=== PATIENT | female | born 1960 | race Caucasian/White ===

== ENCOUNTER 2025-07-15 06:09 | Day surgery (SDC) | payer MEDICAID, SELFPAY ==
--- NOTE | 2025-07-14 16:49 | W.ANESPRE ---
General Info Date of Service Date Performed: 07/15/25 Height: 5 ft 5 in Weight: 89.358 kg Body Mass Index (BMI): 32.8 Surgical Procedure: Operation Date: 07/15/25 07:40 Proposed Procedure Side Surgeon p Wrist ECTR Right Ari Houston MD Meds Allergies and Home Medications Allergies Allergy/AdvReac Type Severity Reaction Status Date / Time No Known Allergies Allergy Verified 07/15/25 06:37 Home Medication Medication Instructions Recorded ascorbic acid (vitamin C) 1,000 mg 1,000 mg PO DAILY 04/03/25 capsule atorvastatin 40 mg tablet (Lipitor) 40 mg PO DAILY 04/03/25 cholecalciferol (vitamin D3) 50 50 mcg PO DAILY 04/03/25 mcg (2,000 unit) capsule lisinopril 20 1 tab PO DAILY 04/03/25 mg-hydrochlorothiazide 25 mg tablet metformin 500 mg tablet 500 mg PO DAILY 04/03/25 semaglutide 2 mg/dose (8 mg/3 mL) 2 mg subcut QWEEK 04/03/25 subcutaneous pen injector (Ozempic) Current Visit Medications: Current Medications Generic Name Dose Route Start Last Admin Trade Name Freq PRN Reason Stop Dose Admin Ringer's Solution 1,000 mls @ 80 mls/hr 07/15/25 06:00 IV 07/15/25 23:59 INFUSION BOB Cefazolin Sodium/Dextrose 2 gm in 50 mls @ 100 mls/hr 07/15/25 06:00 Ancef Duplex IVPB 07/15/25 23:59 PREOP BOB IV Miscellaneous Supplies 1 each 07/15/25 06:00 Iv Access IV 07/15/25 23:59 DIRECTED BOB Sodium Chloride 0 ml 07/15/25 06:00 Normal Saline Flush 10 Ml Syr IV 07/15/25 23:59 PRN PRN Sodium Chloride 0 ml 07/15/25 06:00 Normal Saline 10 Ml Vial IJ 07/15/25 23:59 DIRECTED PRN Sterile Water 0 ml 07/15/25 06:00 Water,Injection,Sterile 10 Ml Vial IJ 07/15/25 23:59 DIRECTED PRN PFSH Active Problems Active Problems: Problem Status Onset Code Decreased sensation Acute R20.8 Carpal tunnel syndrome, right upper limb Acute G56.01 Obesity Chronic E66.9 Hypertension Chronic I10 Hyperlipidemia Acute E78.5 Former smoker Acute Z87.891 Type 2 diabetes mellitus Acute E11.9 Surgical History Surgical History History of carpal tunnel surgery of left wrist History of laparoscopic cholecystectomy History of tubal ligation History of endometrial ablation History of left oophorectomy Tobacco Smoking/Tobacco Use Status: Former Tobacco Use Passive smoking exposure: No Second hand exposure: No Alcohol Alcohol Intake: current Alcohol intake frequency: a few times a week Substance Use Substance use: Occasionally Substance use type: marijuana Vital Signs and Lab Results Lab Results Complete Metabolic Panel: Sodium, (120-150) 139 07/02/25, 15:17 Potassium, (3.5-5.1) 3.9 mmol/L 07/02/25, 15:17 Chloride 102 mmol/L 07/02/25, 15:17 Carbon Dioxide 30 mmol/L 07/02/25, 15:17 BUN, (7-18) 12 mg/dL 07/02/25, 15:17 Creatinine, (0.55-1.02) 0.61 mg/dL 07/02/25, 15:17 Est GFR (CKD-EPI 2020) 100 mL/min/ 07/02/25, 15:17 Calcium 9.6 mg/dL 07/02/25, 15:17 Glucose 86 mg/dL 07/02/25, 15:17 Hemoglobin A1c, (4.5-5.7) 5.5 % 07/02/25, 15:10 Anesthesia Assessment and Plan Anesthesia History Personal History: No History of Anesthesia Complications Family History: No Family History of Anesthesia Complications Exercise Tolerance Exercise Tolerance: Metabolic Equivalents>4 Pertinent Negatives Pertinent Negatives: No Symptoms of GERD, No Major Cardiovascular Symptoms or Complaints, No Major Pulmonary Symptoms or Complaints and No History of CVA/TIA Cardiac & Pulmonary Exam Cardiac Exam: Normal S1/S2 Heart Sounds Pulmonary Exam: Clear Bilateral Breath Sounds Implantable Cardiac Device Does patient have a Pacemaker or an ICD?: No Airway Exam Known Difficult Airway: No Mallampati Class: 2 Mouth Opening: Normal (> 3cm) Thyromental Distance: Greater than 3 cm Neck Range of Motion: Full ROM Neck Circumference: Normal Teeth Condition: Normal Dentition ASA Classification ASA Score: ASA 2 Emergency Case?: No NPO Status NPO Status: NPO Clears >2 hours, Solids >8 hours Anesthesia Plan Resuscitation Status: Full Code Anesthesia Technique: General Anesthesia Airway Planned: Natural Airway Monitors Used: Standard Monitors Preoperative Comments:: Patient reports years of intermittent numbness and tingling in the right radial digits which has been worsening for the past several months. She reports that the thumb, index, and middle fingers go numb when doing her makeup and causes her to drop things. She also gets [id number] in her palm at night which is very uncomfortable. She has previously tried night bracing which she reports was not helpful. Patient reports history of contralateral LEFT ECTR about 8-10 years ago in [place] with excellent results. She reports that she had nerve conduction studies prior to LEFT ECTR but has not had any on the right. History of HTN and diabetes, last A1c was 5.6 on 03/30/25.
[2025-07-15 06:32] VITALS: BP 125/63; PULSE 65; RESP 14; TEMP 36.2; O2SAT 97
[2025-07-15] MEDS: Lactated Ringers 1,000 ML 80 ML IV (06:49)
[2025-07-15 07:08] VITALS: BMI 32.8
--- NOTE | 2025-07-15 07:11 | W.PM.DSUDISC ---
Date of service: 07/15/25 Discharge Plan Disposition Patient Disposition: Home Condition: Good Discharge Details Reason For Visit: R ECTR Attending Provider: Ari Houston Primary Care Provider: Mela Page Home Meds and New Rx's Prescriptions: New acetaminophen 500 mg tablet 500 mg PO TID Qty: 90 0RF hydrocodone-acetaminophen 5-325 mg tablet 1 tab PO Q6H PRN (Reason: pain) Qty: 4 0RF ibuprofen 600 mg tablet 600 mg PO TID PRN (Reason: pain) Qty: 90 0RF Continued atorvastatin [Lipitor] 40 mg tablet 40 mg PO DAILY metformin 500 mg tablet 500 mg PO DAILY lisinopril-hydrochlorothiazide 20-25 mg tablet 1 tab PO DAILY cholecalciferol (vitamin D3) 50 mcg (2,000 unit) capsule 50 mcg PO DAILY Ozempic 2 mg/dose (8 mg/3 mL) pen injector 2 mg subcut QWEEK ascorbic acid (vitamin C) 1,000 mg capsule 1,000 mg PO DAILY Discharge Instructions Stand Alone Forms: Anesthesia Discharge Inst., Celso Almazan Tunnel Release, Ciro Young ([facility]U), Portal Information Referrals: Ari Houston MD [ [facility] STAFF PHYSICIAN, Orthopaedic Surgical] - 07/27/25 8:30 am Activity:: Activity as Tolerated Remove Dressings/Wound Care:: 48 hours Shower/Bathe:: 48 hours Diet:: As Tolerated Discharge Orders Discharge Orders: Discharge Order (Routine); Ordered 07/15/25 Ordered By: Ramon Lanier DS: Diagnosis Discharge Diagnosis (1) Carpal tunnel syndrome, right upper limb: Status: Acute
[2025-07-15] MEDS: ceFAZolin 2 GM/50 ML BAG IVPB (07:25)
[2025-07-15] MEDS: Lidocaine 1% Multi-Dose W/EPI 1/100,000 50 ML VIAL (07:33)
[2025-07-15 07:41] VITALS: BP 109/60; PULSE 68; RESP 12; TEMP 36.1; O2SAT 92
[2025-07-15 08:04] VITALS: BP 111/68; PULSE 62; RESP 16; TEMP 36.4; O2SAT 94
--- NOTE | 2025-07-15 08:04 | W.ANESPOSTOP ---
Postoperative Evaluation Date, Time and Location Date Performed: 07/15/25 Time Performed: 08:04 Patient Location: Day Surgery Unit Vital Signs Most Recent Imported Vital Signs: Most Recent Vital Signs Temp Pulse Resp BP Pulse Ox 36.1 C L 68 12 109/60 92 07/15/25 07:41 07/15/25 07:41 07/15/25 07:41 07/15/25 07:41 07/15/25 07:41 Pain Score Most Recent Pain Score: Most Recent Pain Score Pain Level 0 07/15/25 07:41 Assessment Mental Status: Awake (Alert & Oriented to Patient Baseline) Airway and Respiratory Function: Patent airway with normal (patient baseline) respiratory exam Cardiovascular Function: Hemodynamically Stable Hydration Status: Adequately Hydrated Nausea & Vomiting: No Nausea or Vomiting Pain: Pain is tolerable per patient Peripheral Nerve Block: Patient did not receive a nerve block
--- NOTE | 2025-07-15 09:18 | W.PM.OP ---
Operative Note Operative Note PRE-OP DIAGNOSIS: Right Carpal Tunnel Syndrome POST-OP DIAGNOSIS: same PROCEDURE: Right Endoscopic Carpal Tunnel Release SURGEON: Ari Houston ANESTHESIA TYPE: General:No Airway Refer to Anesthesia Record ESTIMATED BLOOD LOSS: 0 PATHOLOGY: none sent TOURNIQUET TIME: 6 COMPLICATIONS: None Patient was transported to: same day Patient's condition: stable Indications: I have seen Parul in clinic for symptoms of carpal tunnel syndrome. The numbness, tingling, and pain limited function. Clinical exam findings confirmed the diagnosis of carpal tunnel syndrome. Nonoperative measures such as bracing, time, activity modifications had been tried but disability and pain persisted. She had a successful carpal tunnel release on the left side many years ago. I discussed carpal tunnel release with the patient. I reviewed the risks of the procedure to include, but not limited to, bleeding, infection, pain, stiffness, incomplete release, damage to nerves or vessels, persistent numbness, recurrence. Despite these risks, the patient elected to proceed. Findings: There was tightened carpal tunnel. This was dilated and released successfully with the endoscopic with increased space within the tunnel. The antebrachial fascia was released proximally freeing the median nerve at the wrist. Procedure Description: Parul was greeted in the preoperative holding area where the correct side was identified and marked. The consent was reviewed with the patient and signed. The history and physical was updated. All questions were answered. She was taken back to the operating room. The patient was placed into the supine position on the operating room table with the right arm on an arm board. A nonsterile tourniquet was placed high onto the arm. All bony prominences were well padded. Prophylactic antibiotics in the form of Cephazolin were administered. The right arm was then prepped with Chloraprep and draped in a standard fashion with stockinette and extremity drape. A timeout to confirm correct identity, side and site, procedure, allergies, anesthesia, and medical concerns was performed. The surgical site was marked in the volar wrist creases in line with the radial border of the fourth ray. This area was anesthetized with approximately 10cc of 1% Lidocaine with Epinephrine, buffered with Sodium Bicarbonate. The limb was then exsanguinated with an Esmarch. The skin was incised with a 15 blade, approximately 1cm. The skin only was cut and the deeper tissue was dissected bluntly with a tenotomy scissor, avoiding passing nerve and venous structures. The fascia was penetrated and opened bluntly. A two-prong skin hook was placed under this proximal fascial edge. A series of hamate finders were used to identify and dilate the carpal tunnel. Synovial elevator was used to free synovial attachments to the underside of the transverse carpal ligament. My thumb was kept in the palm to reji the distal extent of the carpal tunnel and correctly position the hand. The [employer] endoscope was inserted without difficulty and without resistance. Excellent visualization showed horizontally running fibers of the transverse carpal ligament (TCL). The distal extent of the TCL was visualized and the end of the scope palpated with the thumb. The blade was elevated and withdrawn from distal to proximal. The TCL was split into two flaps. The endoscope was reinserted to confirm complete release and any remnant ligament was incised. The scope was withdrawn and the proximal aspect of the carpal tunnel was grossly inspected and appeared release with the median nerve visible. The antebrachial fascia at the level of the wrist was then freed from the overlying skin and then the underlying median nerve with blunt dissection. This was transected longitudinally for about 3cm proximal to the wrist incision. The wound was then irrigated with easy flow of irrigant distally and proximally. The incision was closed with a single 4-0 Nylon suture. The wound was dressed with Xeroform, Gauze, Kerlix and Isidro. The tourniquet was deflated with the initial dressing and held with some pressure. Blood flow returned easily to all digits with capillary refill less than 2 seconds. The patient tolerated the procedure well and was returned to the Same Day Surgery area in a stable condition suffering no known complication. Date of Procedure: 07/15/25
== END 2025-07-15 08:30 | disposition home or self-care (01) ==
PROVIDERS: PCP Nurse Practitioner Family; Visit Provider Student in an Organized Health Care Education/Training Program
PROC: 01N54ZZ Release Median Nerve, Percutaneous Endoscopic Approach (ICD-10-PCS; CPT 29848; principal; 2025-07-15 07:30)
DX: G56.01 Carpal tunnel syndrome, right upper limb (principal); I10 Essential (primary) hypertension; E78.5 Hyperlipidemia, unspecified; E11.9 Type 2 diabetes mellitus without complications
CPT/HCPCS: 29848; J0690; J2004; J2250; J2704; J3010

== ENCOUNTER 2025-07-24 12:14 | Outpatient (CLI) | payer MEDICAID, SELFPAY ==
[2025-07-24 10:35] LABS: Vitamin B12 476 pg/mL (211-911)
[2025-07-24 10:40] LABS: Folate > 24.0 ng/mL (>5.38)
== END 2025-07-24 12:15 | disposition home or self-care (01) ==
LOC: LBO 12:15
PROVIDERS: PCP Nurse Practitioner Family; Visit Provider Nurse Practitioner Family
DX: R20.2 Paresthesia of skin (principal)
CPT/HCPCS: 36415; 82607; 82746

== ENCOUNTER → 2025-07-27 03:58 | Outpatient (CLI) | payer MEDICAID, SELFPAY ==
--- NOTE | 2025-07-27 06:45 | DI.RAD_ITS ---
Exam(s) XR LUMBAR SPINE COMPLETE EXAM: XR LUMBAR SPINE COMPLETE CLINICAL HISTORY: low back pain,m54.50. TECHNIQUE: 2D digital imaging was performed of the lumbar spine. Five images were obtained. AP, lateral, right oblique, left oblique and L5-S1 spot views were obtained. COMPARISON: No exams were available for comparison FINDINGS: BONES: No fracture or destructive lesion. There are endplate osteophytes at multiple levels of the lumbar spine. Degenerative changes of the facets are seen in the lumbar spine particularly at L5-S1. DISKS: There is disc space narrowing at L4-5 and L5-S1. ALIGNMENT: Lumbar spinal alignment is within normal limits. No spondylolysis or spondylolisthesis. SOFT TISSUE: Atherosclerotic calcification is present. There are surgical clips in the right upper quadrant of the abdomen likely reflecting prior cholecystectomy. IMPRESSION: Moderate degenerative changes seen in the lumbar spine. DATA REPOSITORY: RADIATION DOSE DELIVERED:
== END ==
LOC: DI 03:58
PROVIDERS: PCP Nurse Practitioner Family; Visit Provider Nurse Practitioner Family
DX: M51.360 Other intervertebral disc degeneration, lumbar region with discogenic back pain only (principal)
CPT/HCPCS: 72110